=== PATIENT | male | born 1985 | race Caucasian/White ===

== ENCOUNTER 2019-07-19 14:27 | Emergency (ER) | payer OTHER ==
[2019-07-19 14:40] VITALS: RESP 18; TEMP 98.1
--- NOTE | 2019-07-19 15:33 | ED ---
General Adult HPI - General Chief complaint: Anxiety Stated complaint: Anxiety Time Seen by Provider: 07/19/19 14:58 Source: patient, RN notes reviewed Mode of arrival: ambulatory Limitations: no limitations - History of Present Illness Initial comments: Patient is a pleasant 34-year-old male presenting to the emergency department with questions regarding his medication. Patient is on Strattera. Patient has been on this for 1 year. Patient questions if this is the right medication for him. Patient states sometimes he feels like it helps him to focus too much. Patient states otherwise he is functioning well. Patient is eating and drinking well. Patient is sleeping well. Patient and showering and taking care of himself. No suicidal or homicidal thoughts. No hallucinations. No alcohol or street drug use. - Related Data Home Medications Medication Instructions Recorded Confirmed Atomoxetine HCl 80 mg PO DAILY 07/19/19 07/19/19 Losartan [Cozaar] 25 mg PO BID 07/19/19 07/19/19 Allergies Allergy/AdvReac Type Severity Reaction Status Date / Time No Known Allergies Allergy Verified 07/19/19 14:35 Review of Systems ROS Statement: Those systems with pertinent positive or pertinent negative responses have been documented in the HPI. ROS Other: All systems not noted in ROS Statement are negative. Constitutional: Denies: fever Eyes: Denies: eye pain ENT: Denies: ear pain Respiratory: Denies: cough Cardiovascular: Denies: chest pain Endocrine: Denies: fatigue Gastrointestinal: Denies: abdominal pain Genitourinary: Denies: dysuria Musculoskeletal: Denies: back pain Skin: Denies: rash Neurological: Denies: weakness Psychiatric: Denies: depression, auditory hallucinations, visual hallucinations, homicidal thoughts, suicidal thoughts Past Medical History Past Medical History: Hypertension History of Any Multi-Drug Resistant Organisms: None Reported Past Surgical History: No Surgical Hx Reported Past Psychological History: Anxiety, Depression Smoking Status: Never smoker Past Alcohol Use History: None Reported Past Drug Use History: None Reported General Exam Limitations: no limitations General appearance: alert, in no apparent distress Head exam: Present: normocephalic Eye exam: Present: normal appearance Neck exam: Present: normal inspection Respiratory exam: Present: normal lung sounds bilaterally Cardiovascular Exam: Present: regular rate, normal rhythm GI/Abdominal exam: Present: soft. Absent: tenderness Extremities exam: Present: normal inspection Neurological exam: Present: alert, oriented X3 Psychiatric exam: Present: normal affect, normal mood Skin exam: Present: normal color Course Vital Signs 07/19/19 14:34 Temperature 98.1 F Pulse Rate 95 Respiratory 18 Rate Blood Pressure 165/109 O2 Sat by Pulse 98 Oximetry Medical Decision Making - Medical Decision Making Discussion had with patient regarding psychiatric evaluation. Patient is updated that for psychiatric evaluation she would need to go through the full process and there may not be any changes with medication. Patient states secondary to this he would like to be discharged and follow-up with his primary care physician regarding his medications. Patient again states that he has not depressor having suicidal thoughts. Disposition Clinical Impression: Medication reaction Disposition: HOME SELF-CARE Condition: Stable Instructions (If sedation given, give patient instructions): Generalized Anxiety Disorder (ED) Additional Instructions: Please follow-up with primary care physician in the next couple days for re check. Return for depression, thoughts of self-harm or harming others, worsening symptoms or any other concerns. Discussed with primary care physician regarding medication changes. Is patient prescribed a controlled substance at d/c from ED?: No Referrals: Cam Burris MD [Primary Care Provider] - 1-2 days Time of Disposition: 15:33
[2019-07-19 15:53] VITALS: BP 170/84; PULSE 94
== END 2019-07-19 15:45 | disposition home or self-care (01) ==
LOC: EC 14:27
DX: F41.9 Anxiety disorder, unspecified (principal); T50.905A Adverse effect of unspecified drugs, medicaments and biological substances, initial encounter; I10 Essential (primary) hypertension; F32.9 Major depressive disorder, single episode, unspecified; Z79.899 Other long term (current) drug therapy
CPT/HCPCS: 82075; 99283